=== PATIENT | male | born 1950 | race Caucasian/White ===

== ENCOUNTER 2018-11-25 07:30 | Day surgery (SDC) | payer OTHER ==
[2018-11-21 13:39] VITALS: BP 101/61
[2018-11-21 13:43] LABS: BASOPHILS % (AUTO) 0.3 % (0.0-5.0); EOSINOPHILS % (AUTO) 4.1 % (0.0-8.0); HEMATOCRIT 34.2 % (42-54); MEAN CORPUSCULAR HEMOGLOBIN 30.5 pg (27.0-33.0); MEAN CORPUSCULAR HGB CONC 34.8 g/dL (32.0-36.0); MEAN CORPUSCULAR VOLUME 87.8 fL (79-99); MONOCYTES % (AUTO) 12.6 % (3.0-13.0); PLATELET COUNT (AUTO) 165 K/uL (130-400); RED BLOOD CELL COUNT(AUTO) 3.89 MIL/uL (4.50-6.20); RED CELL DISTRIBUTION WIDTH 16.1 % (11.0-15.5); WHITE BLOOD COUNT (AUTO) 3.6 K/uL (4.8-10.8)
[2018-11-21 13:52] LABS: INR 1.02 (0.85-1.15); PARTIAL THROMBOPLASTIN TIME 26.8 SEC (26.3-35.5); PROTHROMBIN TIME 10.7 SEC (9.6-11.6)
[2018-11-25] VITALS (18 sets, daily range): BP systolic 107–128; BP diastolic 51–68
[2018-11-25] MEDS ORDERED: LACTATED RINGERS 1000ML 1,000 ML IV ONE (08:40)
[2018-11-25 08:50] LABS: CREATININE 0.7 mg/dL (0.5-1.5); POTASSIUM 3.7 mmol/L (3.5-5.1)
[2018-11-25] MEDS ORDERED: FLUT1BLS3 IH (09:13)
[2018-11-25] MEDS ORDERED: TAMS-1 PO (09:13)
[2018-11-25] MEDS ORDERED: FURO40TA5 PO (09:15)
[2018-11-25] MEDS ORDERED: METO-408 PO (09:15)
[2018-11-25] MEDS ORDERED: FENTANYL CITRATE PF 50 MCG/1 ML 2ML VIAL ONE ×2 (10:09→12:28)
[2018-11-25] MEDS ORDERED: PROPOFOL 10 MG/ML 20ML VIAL IV ONE ×2 (10:09→12:28)
[2018-11-25] MEDS ORDERED: LIDOCAINE PF 2% 5ML ABBOJECT ONE ×2 (10:09→12:27)
[2018-11-25] MEDS ORDERED: SUCCINYLCHOLINE 200MG/10ML SYR ONE ×2 (10:09→10:12)
[2018-11-25] MEDS ORDERED: MIDAZOLAM HCL 1 MG/ML 2ML VIAL ONE ×2 (10:15→12:28)
[2018-11-25] MEDS ORDERED: LIDOCAINE 1%-EPI 1:100,000 20 ML VIAL IJ ONE (10:21)
[2018-11-25] MEDS ORDERED: DEXAMETHASONE SOD PHOSPHATE 10MG/ML 1ML VIAL ONE ×2 (10:26→12:28)
[2018-11-25] MEDS ORDERED: KETOROLAC TROMETHAMINE 30MG/ML ONE ×2 (10:35→10:37)
[2018-11-25] MEDS ORDERED: ONDANSETRON HCL 4 MG/2 ML VIAL ONE ×2 (10:36→12:28)
--- NOTE | 2018-11-25 11:45 | NUR ---
PATIENT ARRIVED PATIENT BROUGHT FROM PACU VIA BED BY LORRIE PUTNAM. PATIENT AAOX3, RESPIRATIONS UNLABORED, VITAL SIGNS STABLE, C/O DISCOMFORT TO BACK OF THROAT. PEG TUBE IN PLACE TO ABDOMEN (CLAMPED). COLOSTOMY BAG TO ABDOMEN, BAG IS EMPTY AT THIS TIME. SIDERAILS UP X2, BED IN LOWEST POSITION, CALL BUTCHER WITHIN REACH.
--- NOTE | 2018-11-25 12:30 | NUR ---
DISCHARGE INSTRUCTIONS DISCHARGE INSTRUCTIONS GIVEN TO PATIENT'S SON (GALINDO). PROVIDED FOLLOW UP APPOINTMENT WITH DR ROSS FOR Saturday12/01/18. INSTRUCTIONS GIVEN REGARDING SIGNS/SYMPTOMS TO MONITOR FOR AND REPORT TO MD. ALL QUESTIONS/CONCERNS ADDRESSED AND PATIENT'S SON VERBALIZED UNDERSTANDING.
[2018-11-25] MEDS ORDERED: ROPIVACAINE 0.5% 5MG/ML 30ML IJ ONE (12:37)
--- NOTE | 2018-11-25 12:40 | NUR ---
PATIENT DISCHARGED PATIENT DISCHARGED FROM FACILITY VIA WHEELCHAIR AND PATIENT ABLE TO GET INTO PRIVATE VEHICLE UNASSISTED DRIVEN BY SON.
[2018-11-25] MEDS ORDERED: EPHEDRINE SULFATE 50 MG/ML AMPULE ONE (12:45)
[2018-11-25] MEDS ORDERED: GLYCOPYRROLATE 1 MG/5 ML SYRINGE ONE (13:58)
[2018-11-25] MEDS ORDERED: NEOSTIGMINE 5MG/5ML SYR IV ONE (13:58)
== END 2018-11-25 12:40 | disposition home or self-care (01) ==
LOC: DAH 07:30
PROVIDERS: ATTEND Otolaryngology Plastic Surgery within the Head & Neck
DX: C10.9 Malignant neoplasm of oropharynx, unspecified (principal); C09.9 Malignant neoplasm of tonsil, unspecified; I10 Essential (primary) hypertension; J44.9 Chronic obstructive pulmonary disease, unspecified; Z98.890 Other specified postprocedural states; Z79.899 Other long term (current) drug therapy; Z87.891 Personal history of nicotine dependence
CPT/HCPCS: 31535; 36415 ×2; 71045; 80048; 85025; 85610; 85730; 88305; 93005; A4215; A4221; A4222; A4223; J0330 ×2; J1100 ×2; J1885 ×2; J2001 ×2; J2250 ×2; J2405 ×2; J2704 ×2; J2710; J2795; J3010 ×2; J3490 ×3; J7120 ×2